=== PATIENT | female | born 1960 | race African-American/Black ===

== ENCOUNTER 2016-09-10 12:29 | Emergency (ER) | payer OTHER ==
[2016-09-10 12:35] VITALS: BP 166/102; PULSE 108; TEMP 98.8; BMI 22.3
--- NOTE | 2016-09-10 12:58 | PDOC ---
History of Present Illness <Melany Olvear - Last Filed: 09/10/16 15:18> - General History Source: Patient Exam Limitations: No Limitations - History of Present Illness Initial Comments: 09/10/16 13:37 The patient is a 56 year old female, with a significant past medical history of hypertension, hyperlipidemia, osteopenia and chronic back pain, who presents to the emergency department s/p mechanical injury 6 days ago. Patient reports she was walking using her walker, and tried to find her balance, but landed on the walker with her left ribs. Patient reports associated left rib pain. Patient reports her pain is exacerbated when coughing or taking a deep breath. She reports she uses her walker for a foot fracture she sustained 2 years ago, and states she has frequent falls and has trouble finding her balance. Patient denies any other trauma, LOC, changes in vision, headache, or dizziness. She denies any chest pain, shortness of breath, diaphoresis, or palpitations. Allergies: NKDA Social History: Social ETOH use. Non smoker. No drug use reported. <Gagandeep Gimenez - Last Filed: 09/10/16 15:57> <Vipul Thomas - Last Filed: 09/10/16 16:58> - General Chief Complaint: Pain Stated Complaint: LT SIDE PAIN Time Seen by Provider: 09/10/16 12:57 Past History <Melany Olvera - Last Filed: 09/10/16 15:18> <Gagandeep Gimenez - Last Filed: 09/10/16 15:57> - Past Medical History HTN: Yes Hypercholesterolemia: Yes Other medical history: OSTEOPENIA, BACK PROBLEMS. - Psycho/Social/Smoking Cessation Hx Anxiety: No Suicidal Ideation: No Smoking History: Never smoked Hx Alcohol Use: Yes (SOCIAL) Drug/Substance Use Hx: No Substance Use Type: None <Vipul Thomas - Last Filed: 09/10/16 16:58> - Past Medical History Allergies/Adverse Reactions: Allergies Allergy/AdvReac Type Severity Reaction Status Date / Time No Known Allergies Allergy Verified 09/10/16 12:35 Home Medications: Ambulatory Orders Gabapentin [Neurontin -] 300 mg PO Q8H 09/10/16 Meloxicam [Mobic] 15 mg PO PRN 09/10/16 Review of Systems - Review of Systems Able to Perform ROS?: Yes Comments:: 09/10/16 13:37 GENERAL/CONSTITUTIONAL: No fever or chills. No weakness. HEAD, EYES, EARS, NOSE AND THROAT: No change in vision. No ear pain or discharge. No sore throat. CARDIOVASCULAR: No chest pain or shortness of breath. RESPIRATORY: No cough, wheezing, or hemoptysis. GASTROINTESTINAL: No nausea, vomiting, diarrhea or constipation. GENITOURINARY: No dysuria, frequency, or change in urination. MUSCULOSKELETAL: Yes: +left rib pain. No joint or muscle swelling or pain. No neck pain. SKIN: No rash NEUROLOGIC: No headache, vertigo, loss of consciousness, or change in strength/ sensation. ENDOCRINE: No increased thirst. No abnormal weight change. HEMATOLOGIC/LYMPHATIC: No anemia, easy bleeding, or history of blood clots. ALLERGIC/IMMUNOLOGIC: No hives or skin allergy. <Gagandeep Gimenez - Last Filed: 09/10/16 15:57> *Physical Exam - Vital Signs Last Vital Signs Temp Pulse Resp BP Pulse Ox 98.8 F 108 H 18 166/102 100 09/10/16 12:30 09/10/16 12:30 09/10/16 12:30 09/10/16 12:30 09/10/16 12:30 <Melany Olvera - Last Filed: 09/10/16 15:18> - Vital Signs Last Vital Signs Temp Pulse Resp BP Pulse Ox 98.8 F 108 H 18 166/102 100 09/10/16 12:30 09/10/16 12:30 09/10/16 12:30 09/10/16 12:30 09/10/16 12:30 - Physical Exam Comments: 09/10/16 13:37 GENERAL: Awake, alert, and fully oriented, in no acute distress HEAD: No signs of trauma EYES: PERRLA, EOMI, sclera anicteric, conjunctiva clear ENT: Auricles normal inspection, hearing grossly normal, nares patent, oropharynx clear without exudates. Moist mucosa NECK: Normal ROM, supple, no lymphadenopathy, JVD, or masses LUNGS: Breath sounds equal, clear to auscultation bilaterally. No wheezes, and no crackles HEART: Regular rate and rhythm, normal S1 and S2, no murmurs, rubs or gallops ABDOMEN: Soft, nontender, normoactive bowel sounds. No guarding, no rebound. No masses EXTREMITIES: Tenderness to palpation to the left ribs. Normal range of motion, no edema. No clubbing or cyanosis. No cords, erythema, or tenderness NEUROLOGICAL: Cranial nerves II through XII grossly intact. Normal speech, normal gait SKIN: Warm, Dry, normal turgor, no rashes or lesions noted. <Gagandeep Gimenez - Last Filed: 09/10/16 15:57> - Vital Signs Last Vital Signs Temp Pulse Resp BP Pulse Ox 98.8 F 108 H 18 166/102 100 09/10/16 12:30 09/10/16 12:30 09/10/16 12:30 09/10/16 12:30 09/10/16 12:30 <Vipul Thomas - Last Filed: 09/10/16 16:58> ED Treatment Course - RADIOLOGY Radiograph Interpretation: 09/10/16 15:57 EXAM: Left Ribs X-Ray INTERPRETED BY: Dr. Nunes REVIEWED BY: Dr. Thomas IMPRESSION: Normal views of the left ribs. Clinical correlation advised. EXAM: CXR INTERPRETED BY: Dr. Nunes REVIEWED BY: Dr. Thomas IMPRESSION: Normal chest film. Multiple views of the left ribs are supplied. They demonstrate no evidence of soft tissue or osseous abnormality. The nipple shadow is seen on the left. <Gagandeep Gimenez - Last Filed: 09/10/16 15:57> Medical Decision Making - Medical Decision Making 09/10/16 15:19 focused ED ultrasound TTE performed, indication: trauma Heart scanned in 4 viewes (parasternal long, parasternal short, apical, and subxiphoid) no pericardial effusion noted good contractility, no RV enlargement focused ED ultrasound lungs , indication trauma r/o ptx. lungs scanned bilaterally with linear high frequency probe, good sliding noted . impressions: cardiac, normal TTE. Lungs: no pneumothorax. cirilli <Melany Olvera - Last Filed: 09/10/16 15:18> *DC/Admit/Observation/Transfer <Melany Olvera - Last Filed: 09/10/16 15:18> - Attestations Scribe Attestion: 09/10/16 13:38 Documentation prepared by Gagandeep Gimenez, acting as medical laboratory technical officer for Vipul Thomas DO. <Gagandeep Gimenez - Last Filed: 09/10/16 15:57> - Discharge Dispostion Admit: No - Attestations Physician Attestion: 09/10/16 12:58 I, Dr. Vipul Thomas, attest that this document has been prepared under my direction and personally reviewed by me in its entirety. I further attest, that it accurately reflects all work, treatment, procedures and medical decision -making performed by me. <Vipul Thomas - Last Filed: 09/10/16 16:58> Diagnosis at time of Disposition: Bruised rib Qualifiers: Encounter type: initial encounter Laterality: left Qualified Code(s): S20.212A - Contusion of left front wall of thorax, initial encounter - Discharge Dispostion Disposition: HOME Condition at time of disposition: Improved - Referrals Referrals: Hector Peterson [Primary Care Provider] - - Patient Instructions Printed Discharge Instructions: DI for Rib Contusion Additional Instructions: Mrs Allen- Your rib is not broken, it is bruised. Use your Mobic and Gabapentin. Follow up with your regular doctor. Return to us if any problems. Be careful. Best- Dr. Vipul Thomas
== END 2016-09-10 18:00 | disposition home or self-care (01) ==
LOC: JER 12:29
DX: S20.212A Contusion of left front wall of thorax, initial encounter (principal); I10 Essential (primary) hypertension; E78.5 Hyperlipidemia, unspecified; M85.80 Other specified disorders of bone density and structure, unspecified site; M54.5 Low back pain; G89.29 Other chronic pain; R29.6 Repeated falls; R26.2 Difficulty in walking, not elsewhere classified; Z99.89 Dependence on other enabling machines and devices; W01.198A Fall on same level from slipping, tripping and stumbling with subsequent striking against other object, initial encounter; Z91.81 History of falling; Y93.01 Activity, walking, marching and hiking; Y92.9 Unspecified place or not applicable
CPT/HCPCS: 71020-TC; 71101-TC; 99282-25